=== PATIENT | male | born 1965 | race Caucasian/White ===

== ENCOUNTER 2018-11-27 14:27 | Emergency (ER) | payer SELFPAY ==
[~2018-11-27] VITALS: Ht 180.3 cm; Wt 115.6 kg
[2018-11-27 14:34] VITALS: BP 174/95
[2018-11-27] MEDS ORDERED: HTN MED (14:52)
--- NOTE | 2018-11-27 15:06 | NUR ---
Patient/Caregiver given discharge instructions and they have confirmed that they understand the instructions. Patient ambulatory with steady gait.
== END 2018-11-27 15:08 | disposition home or self-care (01) ==
LOC: ED 15:02
DX: F41.1 Generalized anxiety disorder (principal); Z76.0 Encounter for issue of repeat prescription; I10 Essential (primary) hypertension
CPT/HCPCS: 99283; 99284